=== PATIENT | female | born 1995 | race Hispanic/Latino ===

== ENCOUNTER 2018-06-26 22:05 | Emergency (ER) | payer OTHER ==
--- NOTE | 2018-06-26 23:51 | ER ---
Nurse's Notes [facility] Name: Yanelis Gallagher Age: 22 yrs Sex: Female : 1995 Arrival Date: 06/26/2018 Time: 22:09 Bed 13 Private MD: Gigi Webber Diagnosis: Dysmenorrhea, unspecified Presentation: 06/26 22:27 Presenting complaint: Patient states: LLQ and pelvic pain with spotting for three days, la1 LMP was 06/09/18. Transition of care: patient was not received from another setting of care. Onset of symptoms was June 26, 2018. Risk Assessment: Do you want to hurt yourself or someone else? Patient reports no desire to harm self or others. Initial Sepsis Screen: Does the patient meet any 2 criteria? No. Patient's initial sepsis screen is negative. Does the patient have a suspected source of infection? No. Patient's initial sepsis screen is negative. Care prior to arrival: None. 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 - Social history:: Smoking status: Patient/guardian denies using tobacco. - Ebola Screening: : No symptoms or risks identified at this time. - Family history:: not pertinent. Screenin:15 Abuse screen: Denies threats or abuse. Denies injuries from another. Nutritional aa1 screening: No deficits noted. Tuberculosis screening: No symptoms or risk factors identified. Fall Risk None identified. Assessment: 23:15 General: Appears in no apparent distress. comfortable, Behavior is calm, cooperative, aa1 appropriate for age. Pain: Complains of pain in left lower quadrant and right lower quadrant and suprapubic area Quality of pain is described as crampy, Pain began 1 day ago. Neuro: Level of Consciousness is awake, alert, obeys commands, Oriented to person, place, time, situation, Moves all extremities. Full function Gait is steady, Speech is normal. Cardiovascular: Denies chest pain, palpitations, shortness of breath. Respiratory: Airway is patent Respiratory effort is even, unlabored, Respiratory pattern is regular, symmetrical. GI: Reports lower abdominal pain, cramping, Patient currently denies constipation, diarrhea, nausea, vomiting. : Urine is blood tinged, Reports cramping, vaginal bleeding that is light flow, Denies burning with urination, discharge, urinary frequency, urgency. EENT: No signs and/or symptoms were reported regarding the EENT system. Derm: Skin is intact, is healthy with good turgor, Skin is pink, warm \T\ dry. Musculoskeletal: Circulation, motion, and sensation intact. Capillary refill < 3 seconds. 23:57 Reassessment: Patient appears in no apparent distress at this time. Patient is alert, aa1 oriented x 3, equal unlabored respirations, skin warm/dry/pink. Discussed d/c \T\ f/u instructions with pt. Denies questions or concerns at this time. Amb to lobby with steady gait. Vital Signs: 22:28 BP 159 / 97; Pulse 93; Resp 16; Temp 97.4; Pulse Ox 98% on R/A; Weight 69.85 kg; Height la1 5 ft. 4 in. (162.56 cm); Pain 8/10; 23:57 BP 134 / 82; Pulse 88; Resp 16; Pulse Ox 99% on R/A; Pain 4/10; aa1 22:28 Body Mass Index 26.43 (69.85 kg, 162.56 cm) la1 ED Course: 22:09 Patient arrived in ED. mr 22:09 Gigi Webber MD is Private Physician. mr 22:27 Triage completed. la1 22:29 Arm band placed on left wrist. la1 23:15 Hossein Burr MD is Attending Physician. honorio 23:15 Patient has correct armband on for positive identification. Placed in gown. Bed in low aa1 position. Call light in reach. Pulse ox on. NIBP on. Warm blanket given. 23:22 Sindy Rhodes RN is Primary Nurse. aa1 23:49 Gigi eWbber MD is Referral Physician. honorio 23:50 Russel Rasmussen MD is Referral Physician. [facility] 23:57 No provider procedures requiring assistance completed. Patient did not have IV access aa1 during this emergency room visit. Administered Medications: No medications were administered Outcome: 23:50 Discharge ordered by . [facility] 23:57 Discharged to home ambulatory. aa1 23:57 Condition: good 23:57 Discharge instructions given to patient, Instructed on discharge instructions, follow up and referral plans. medication usage, Demonstrated understanding of instructions, follow-up care, medications, Prescriptions given X 1. 23:59 Patient left the ED. aa1 Signatures: Sindy Rhodes, RN RN aa1 Hossein Burr MD MD cha Rivera, Mary mr Attema, Lee, RN RN la1
--- NOTE | 2018-06-26 23:51 | EDPHYS ---
Physician Documentation [facility] Name: Yanelis Gallagher Age: 22 yrs Sex: Female : 1995 Arrival Date: 06/26/2018 Time: 22:09 Bed 13 Private MD: Gigi Webber ED Physician Hossein Burr HPI: 06/26 23:42 This 22 yrs old Female presents to ER via Ambulatory with complaints of honorio Vaginal Bleeding, Abdominal Pain. 23:42 The patient presents with vaginal bleeding that is light. Onset: The symptoms/episode honorio began/occurred 3 day(s) ago. Modifying factors: The symptoms are alleviated by. Associated signs and symptoms: The patient has no apparent associated signs or symptoms. Severity of symptoms: At their worst the symptoms were mild, in the emergency department the symptoms are unchanged. The patient has not experienced similar symptoms in the past. 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 - Social history:: Smoking status: Patient/guardian denies using tobacco. - Ebola Screening: : No symptoms or risks identified at this time. - Family history:: not pertinent. ROS: 23:42 Constitutional: Negative for fever, chills, and weight loss, Eyes: Negative for injury, honorio pain, redness, and discharge, ENT: Negative for injury, pain, and discharge, Neck: Negative for injury, pain, and swelling, Cardiovascular: Negative for chest pain, palpitations, and edema, Respiratory: Negative for shortness of breath, cough, wheezing, and pleuritic chest pain, Back: Negative for injury and pain, MS/Extremity: Negative for injury and deformity, Skin: Negative for injury, rash, and discoloration, Neuro: Negative for headache, weakness, numbness, tingling, and seizure, Psych: Negative for depression, anxiety, suicide ideation, homicidal ideation, and hallucinations, Allergy/Immunology: Negative for hives, rash, and allergies, Endocrine: Negative for neck swelling, polydipsia, polyuria, polyphagia, and marked weight changes, Hematologic/Lymphatic: Negative for swollen nodes, abnormal bleeding, and unusual bruising. 23:42 Abdomen/GI: Positive for abdominal pain, of the suprapubic area, right lower quadrant and left lower quadrant. 23:42 : Positive for vaginal bleeding. Exam: 23:42 Constitutional: This is a well developed, well nourished patient who is awake, alert, honorio and in no acute distress. Head/Face: Normocephalic, atraumatic. Eyes: Pupils equal round and reactive to light, extra-ocular motions intact. Lids and lashes normal. Conjunctiva and sclera are non-icteric and not injected. Cornea within normal limits. Periorbital areas with no swelling, redness, or edema. ENT: Nares patent. No nasal discharge, no septal abnormalities noted. Tympanic membranes are normal and external auditory canals are clear. Oropharynx with no redness, swelling, or masses, exudates, or evidence of obstruction, uvula midline. Mucous membranes moist. Neck: Trachea midline, no thyromegaly or masses palpated, and no cervical lymphadenopathy. Supple, full range of motion without nuchal rigidity, or vertebral point tenderness. No Meningismus. Chest/axilla: Normal chest wall appearance and motion. Nontender with no deformity. No lesions are appreciated. Cardiovascular: Regular rate and rhythm with a normal S1 and S2. No gallops, murmurs, or rubs. Normal PMI, no JVD. No pulse deficits. Respiratory: Lungs have equal breath sounds bilaterally, clear to auscultation and percussion. No rales, rhonchi or wheezes noted. No increased work of breathing, no retractions or nasal flaring. Abdomen/GI: Soft, non-tender, with normal bowel sounds. No distension or tympany. No guarding or rebound. No evidence of tenderness throughout. Back: No spinal tenderness. No costovertebral tenderness. Full range of motion. Skin: Warm, dry with normal turgor. Normal color with no rashes, no lesions, and no evidence of cellulitis. MS/ Extremity: Pulses equal, no cyanosis. Neurovascular intact. Full, normal range of motion. Neuro: Awake and alert, GCS 15, oriented to person, place, time, and situation. Cranial nerves II-XII grossly intact. Motor strength 5/5 in all extremities. Sensory grossly intact. Cerebellar exam normal. Normal gait. Psych: Awake, alert, with orientation to person, place and time. Behavior, mood, and affect are within normal limits. Vital Signs: 22:28 BP 159 / 97; Pulse 93; Resp 16; Temp 97.4; Pulse Ox 98% on R/A; Weight 69.85 kg; Height la1 5 ft. 4 in. (162.56 cm); Pain 8/10; 23:57 BP 134 / 82; Pulse 88; Resp 16; Pulse Ox 99% on R/A; Pain 4/10; aa1 22:28 Body Mass Index 26.43 (69.85 kg, 162.56 cm) la1 MDM: 23:15 Patient medically screened. [facility] 23:42 Data reviewed: vital signs, nurses notes, lab test result(s), urinalysis. [facility] 06/26 23:15 Order name: Urine Dipstick-Ancillary (obtain specimen); Complete Time: 23:24 [facility] 06/26 23:15 Order name: Urine Test (obtain specimen); Complete Time: 23:24 [facility] Administered Medications: No medications were administered Disposition: 06/26/18 23:50 Discharged to Home. Impression: Dysmenorrhea, unspecified. - Condition is Stable. - Discharge Instructions: Dysmenorrhea, Dysmenorrhea, [id number]. - Prescriptions for Motrin IB 200 mg Oral Tablet - take 2 tablet by ORAL route every 6 hours As needed as needed with food; 30 tablet. - Medication Reconciliation Form, Thank You Letter, Antibiotic Education, Prescription Opioid Use form. - Follow up: Gigi Webber MD; When: 2 - 3 days; Reason: Recheck today's complaints, Continuance of care, Re-evaluation by your physician. Follow up: Russel Rasmussen MD; When: 2 - 3 days; Reason: Recheck today's complaints, Continuance of care, Re-evaluation by your physician. - Problem is new. - Symptoms have improved. Signatures: Sindy Rhodes RN RN aa1 Hossein Burr MD MD cha Attema, Lee RN RN la1 Corrections: (The following items were deleted from the chart) 23:59 23:50 06/26/2018 23:50 Discharged to Home. Impression: Dysmenorrhea, unspecified. aa1 Condition is Stable. Forms are Medication Reconciliation Form, Thank You Letter, Antibiotic Education, Prescription Opioid Use. Follow up: Gigi Webber; When: 2 - 3 days; Reason: Recheck today's complaints, Continuance of care, Re-evaluation by your physician. Follow up: Russel Rasmussen; When: 2 - 3 days; Reason: Recheck today's complaints, Continuance of care, Re-evaluation by your physician. Problem is new. Symptoms have improved. honorio
[2018-06-27 00:27] VITALS: TEMP 97.4
[2018-06-27 00:28] VITALS: BP 134/82; O2SAT 99
== END 2018-06-26 23:59 | disposition home or self-care (01) ==
LOC: ER 22:05
DX: N93.9 Abnormal uterine and vaginal bleeding, unspecified (principal); N94.6 Dysmenorrhea, unspecified; J45.909 Unspecified asthma, uncomplicated; Z88.5 Allergy status to narcotic agent
CPT/HCPCS: 99283

== ENCOUNTER 2022-03-02 09:10 | Emergency (ER) | payer OTHER ==
--- OUTSIDE RECORDS SUMMARY | 2022-03-02 09:14 | XMS REPORT | Continuity of Care Document ---
:1995 Author Organization [facility] t Address [address] [place] [address] Care Team Providers Name Role Phone G_Papred Attending Clinician Unavailable White_M Attending Clinician Unavailable AFSANEH_MYRIAM Attending Clinician Unavailable Rutledge_L Attending Clinician Unavailable NÉO DAVENPORT Attending Clinician Unavailable G_Pappas Admitting Clinician Unavailable White_M Admitting Clinician Unavailable AFSANEH_MYRIAM Admitting Clinician Unavailable Rutledge_L Admitting Clinician Unavailable Payers Payer Name Policy Type Policy Number Effective Date [facility]piration Date [facility] [id number] 2020 COMMUNITY PLAN - 00:00:00 [facility] (MEDICAID HMO) Problems Condition Condition Condition Status Onset Resolution Last Treating Co mments Source Name Details Category Date Date Treatment Clinician Date Primary Primary Problem Active [place] dysmenorrh Dysmenorrh 5-20 da ea ea 00:00: Medical 00 Group Menorrhagi Menorrhagi Problem Active [facility] a a 5-20 da 00:00: Medical 00 Group Initial Initial Problem Active [place] prescripti Prescripti 5-20 da on of oral on of Oral 00:00: Me dical contracept Contracept 00 Gr oup ion ion Removal of Removal of Problem Active [facility] subcutaneo Subcutaneo 5-20 da [facility] 00:00: Medical contracept Contracept 00 Gr oup ehsan ehsan Gastritis Gastritis Problem Active 2020-03 [facility] 2-28 da 00:00: Medical 00 Group Allergies, Adverse Reactions, Alerts Allergy Allergy Status Severity Reaction(s) Onset Inactive Treating Comm ents Source Name Type Date Date Clinician TRAMADOL [facility] ACETAMIN Allergy Active [facility] DEINE 00:[facility] Medical 00 Center Tramadol Propensi Active [facility] adverse 00:00: Medical reaction 00 Opp s Acetamin Propensi Active [address] [facility]hen-Co ty [facility] deine adverse 00:00: Medical reaction 00 Opp s Social History Social Habit Start Date Stop Date Quantity Comments Source Tobacco use and 2019-04-08 2019-04-[address] [facility] exposure 00:00:00 00:00:00 [facility] Alcohol intake 2019-04-08 2019-04-08 [facility]00 [facility] alcohol [facility] (finding) Sex Assigned At [address] [address] [facility] 00:00[facility]00 00[facility]00 [facility] Center Smoking Status Start Date Stop Date Source Never sm[facility] Medications Ordered Filled Start Stop Current Ordering Indication Dosage Frequency Signature Comments Components Source Medication Medication Date Date Medication? Clinician (SIG) Name Name dexlansopra 2019- Yes 60mg QD Take [address] zole 60 mg 2-08 by mouth [facility] capsule 07:04: daily. Medical [facility] Center Bifidobacte 2019-0 Yes Take by [facility] rium 2-08 mouth. [facility] infantis 07:04: Medical (ALIGN 59 Center ORAL) simethicone 2020-0 Yes 125mg Take [address] (MYLICON) 2-08 mg by [facility] 125 MG 07:04: mouth Medical chewable 59 every 6 Center tablet (six) hours as needed for Flatulence . Diflucan Diflucan No 1 Q1D Diflucan [facility] 100 mg 100 mg 100 mg da tablet Take tablet Take tablet Medical 1 tablet 1 tablet Take 1 Group every day every day tablet by oral by oral every day route for 3 route for 3 by oral days. days. route for 3 days. nystatin nystatin No nystatin [facility] 100,000 100,000 100,000 da unit/gram unit/gram unit/gram Medical topical topical topical Group cream APPLY cream APPLY cream TO THE TO THE APPLY TO AFFECTED AFFECTED THE AREA(S) BY AREA(S) BY AFFECTED TOPICAL TOPICAL AREA(S) BY ROUTE 2-3 ROUTE 2-3 TOPICAL TIMES PER TIMES PER ROUTE 2-3 DAY DAY TIMES PER DAY Vital Signs Vital Name Observation Time Observation Value Comments Source BP Diastolic 2021-10-14 00:00:00 87 mm[Hg] [facility] Height 2021-10-14 00:00:00 62 [in_i] [facility] BMI (Body Mass 2021-10-14 00:00:00 30.4 kg/m2 [facility] Medical Index) Group BP Systolic 2021-10-14 00:00:00 125 mm[Hg] [facility] Body Weight 2021-10-14 00:00:00 166 [lb_av] [facility] BP Diastolic 2021-07-19 00:00:00 89 mm[Hg] [facility] Height 2021-07-19 00:00:00 62 [in_i] [facility] BMI (Body Mass 2021-07-19 00:00:00 30.7 kg/m2 [facility] Medical Index) Group BP Systolic 2021-07-19 00:00:00 136 mm[Hg] [facility] Body Weight 2021-07-19 00:00:00 168 [lb_av] [facility] BP Diastolic 2021-02-26 00:00:00 71 mm[Hg] [facility] BP Systolic 2021-02-26 00:00:00 123 mm[Hg] [facility] Body Weight 2021-02-26 00:00:00 158.5 [lb_av] [facility] Procedures Procedure Date / Time Performed Performing Clinician [facility] Dilation and Curettage 2020-01-31 00:00:00 [facility] Laparoscopy 2020-01-15 00:00:00 [facility] Endoscopy 2019-01-30 00:00:00 [facility] Plan of Care Planned Activity Planned Date Details Comments Source Future Scheduled 2021-10-[address] [facility] Test 00:00:00 (#1) [code = [facility] INFLUENZA VACCINE (#1)] Diagnostic Test 2021-10-14 urinalysis, dipstick Nieves jayjay Medical Pending 00:00:00 [code = urinalysis, Group dipstick] Diagnostic Test 2021-10-14 [facility]:00 [code = [place], Group vaginal] Future Scheduled 2021-03-[address] [facility] Test 00:00:00 (12+) [code = [facility] Center DEPRESSION SCREENING (12+)] Future Scheduled 2020-04-[address] [facility] Test 00:00[facility] Scre[facility] (12+) [code = Tobacco Cessation Counseling and Screening (12+)] Future Scheduled 2015-10-[address] [facility] Test 00:00:00 malignant neoplasm Medical C enter of cervix (procedure) [code = 995221424] Future Scheduled 2013 DTAP/TDAP/TD [facility] Test 00:00:00 VACCINES (1 - Tdap) Medical Center [code = DTAP/TDAP/TD VACCINES (1 - Tdap)] Future Scheduled [address] [facility] Test 00:00:00 SCREENING [code [facility] HE[facility] C SCREENING] Future Scheduled 1995-04-25 COVID-[address] [facility] Test 00:00:00 (#1) [code = [facility] COVID-19 VACCINE (#1)] Encounters Start End Encounter Admission Attending Care Care Encounter Source Date/Time Date/Time Type Type Clinicians Facility Department ID 2021-10-14 2021-10-14 [place] [id number] [facility] 00:00:00 00:00:00 0815 Medical Group 2021-10-14 2021-10-14 Issac [place] - [id number] [facility] 00:00:00 00:00:00 Discovery prashant Ornelas MD: [address] [place] [phone] , Ph. [phone] 2021-10-08 2021-10-08 [place] [id number] [facility] 00:00:00 00:00:00 0809 Medical Group 2021-09-12 2021-09-12 Outpatient LISTER_LUISA VILLATORO [facility] 739 [place] 12:41:00 12:41:00 SSA 0714 [facility] Program 2021-07-19 2021-07-19 [place] [id number] [place] 08:37:00 08:37:00 0523 Medical Group 2021-07-19 2021-07-19 Outpatient White_M MMG MMG [id number] [place] 03:43:00 03:43:00 0520 Medical Group 2021-07-19 2021-07-19 Issac GOOD [place] - [id number] [facility] 00:00:00 00:00:00 Discovery prashant Ornelas MD: [address] [place] [phone] , Ph. [phone] 2021-07-18 2021-07-18 Outpatient White_M MMG MMG [id number] [place] 03:49:00 03:49:00 0519 Medical Group 2021-02-26 2021-02-26 Outpatient White_M MMG MMG [id number] [place] 10:57:00 10:57:00 1228 Medical Group 2021-02-26 2021-02-26 Outpatient White_M MMG MMG [id number] [place] 10:57:00 10:57:00 1230 da Medical Group 2021-02-26 2021-02-26 Outpatient LOREN VILLATORO 739 [place] 02:47:00 02:47:00 SSA 1228 da [facility] 2021-02-26 2021-02-26 Diana [facility] [place] - [id number] M [facility] 00:00:00 00:00:00 Discovery prashant Wallace [facility]-: [facility] Medical [address] [place] [address] OBGYN [address], [place] [address] , Ph. [phone] 2021-02-25 2021-02-25 Outpatient Rutledge_L [facility] [id number] [place] 09:08:00 09:08:00 1227 Medical Group 2021-02-01 2021-02-01 Outpatient Rutledge_L [facility] [id number] [place] 11:26:00 11:26:00 1203 Medical Group Results Test Description Test Time Test Comments Results Result Comments Source Microscopic observation [Identifier] in Vaginal fluid by Wet 2021-10-14 10:11:04 preparation Test Item Value Reference Range Interpretation Comme nts Clue Cells (test code = Clue Cells) negative WBCs (test code = WBCs) positive Trichomonads (test code = Trichomonads) negative Epithelial cells (test code = Epithelial cells) normal RBCs (test code = RBCs) negative [facility] macro (dipstick) panel - [id number] 09:26:00 Test Item Value Reference Range Interpretation Comments Leukocytes (test code = Leukocytes) Small Nitrite (test code = Nitrite) negative Urobilinogen (test code = .2 Urobilinogen) Protein (test code = Protein) Negative pH (test code = pH) 6.0 Blood (test code = Blood) Small Specific Lockwood (test code = 1.030 Specific [place]) Ketone (test code = Ketone) Negative Bilirubin (test code = Bilirubin) Negative Glucose (test code = Glucose) Negative Appearance (test code = Appearance) Clear Color (test code = Color) Yellow [facility] - Serum or Plasma 2021-02-26 10:02:00 Test Item Value Reference Range Interpretation Comments Glucose [Mass/volume] in Serum or 99 mg/dL 74-106 Plasma (test code = 2345-7) Urea nitrogen [Mass/volume] in 11 mg/dL 6-20 Serum or Plasma (test code = 3094-0) osmolality calculated,serum (test 275 mOsm/kg 280-300 L code = osmolality calculated,serum) creatinine (test code = 0.7 mg/dL 0.50-0.90 creatinine) glomerular filtration rate (test >60.00 code = glomerular filtration rate) Urea nitrogen/Creatinine [Mass 15.7 12-20 Ratio] in Serum or Plasma (test code = 3097-3) sodium level (test code = sodium 138 mmol/L 135-145 level) potassium level (test code = 4.0 mmol/L 3.5-5.2 potassium level) chloride level (test code = 105 mmol/L 98-108 chloride level) CO2 (test code = CO2) 24 mmol/L 21-32 anion gap (test code = anion gap) 13.0 mEq/L 12-20 calcium level (test code = 9.1 mg/dL 8.6-10.0 calcium level) total protein (test code = total 7.3 g/dL 6.6-8.7 protein) albumin (test code = albumin) 4.2 g/dL 3.5-5.2 globulin (test code = globulin) 3.1 gm/dL A/G ratio (test code = A/G ratio) 1.4 >1.0 bilirubin,total (test code = 0.4 mg/dL 0.0-1.2 bilirubin,total) AST/SGOT (test code = AST/SGOT) 16 U/L 15-32 Alanine aminotransferase 13 U/L 0-33 [Enzymatic activity/volume] in Serum or Plasma (test code = 1742-6) Alkaline phosphatase [Enzymatic 79 U/L 35-105 activity/volume] in Serum or Plasma (test code = 6768-6) [facility] Mississippi[facility] 1995 panel - Serum or [id number] 10:02:00 Test Item Value Reference Range Interpretation Comments cholesterol level (test code = 137 mg/dL 150-200 L cholesterol level) triglycerides level (test code = 76 mg/dL <150 triglycerides level) HDL cholesterol (test code = HDL 37 mg/dL >65 L cholesterol) LDL cholesterol direct (test code = 95 mg/dL <100 LDL cholesterol direct) cholesterol risk ratio (test code = 3.702 cholesterol risk ratio) [facility] - cancer history assessment [id number] 08:26:00 Test Item Value Reference Range Interpretation Comments [facility] - cancer history meets criteria A assessment result (test code = [facility] - cancer history assessment result) [facility] Differential panel - [id number] 00:00:00 Test Item Value Reference Range Interpretation Comments white blood count (test code = 7.2 K/uL 4.0-11.5 white blood count) red blood count (test code = red 5.17 M/uL 3.80-5.20 blood count) hemoglobin (test code = 15.0 g/dL 10.5-15.7 hemoglobin) hematocrit (test code = 44.9 % 34.0-50.0 hematocrit) MCV [Entitic volume] (test code = 86.8 fL 86-100 54096-2) mean corpuscular hemoglobin (test 29.0 pg 26.2-33.4 code = mean corpuscular hemoglobin) mean corpuscular HGB conc (test 33.4 g/dL 30-34 code = mean corpuscular HGB conc) red cell distribution width (test 13.0 % 12.0-15.5 code = red cell distribution width) platelet count (test code = 254 K/uL 165-450 platelet count) mean platelet volume (test code = 10.6 fL 9.4-12.6 mean platelet volume) Segmented neutrophils/100 61.9 % 44.4-80.1 leukocytes in Blood (test code = 28060-2) Immature granulocytes [#/volume] 0.0 K/uL 0.0-0.03 in Blood (test code = 92762-7) lymphocyte% (test code = 26.4 % 10.0-50.0 lymphocyte%) mono % (test code = mono %) 9.0 % 3.6-12.0 eos % (test code = eos %) 1.9 % 0.0-5.4 Basophils/100 leukocytes in 0.4 % 0.1-1.2 Unspecified specimen (test code = 33872-1) Band form neutrophils [#/volume] 4.46 K/uL 1.56-6.13 in Blood (test code = 74315-2) Lymphocytes [#/volume] in 1.9 K/uL 1.18-3.74 Unspecified specimen by Automated count (test code = 82457-1) mono # (test code = mono #) 0.65 K/uL 0.24-0.86 eos # (test code = eos #) 0.14 K/uL 0.04-0.36 basophil # (test code = basophil 0.03 K/uL 0.01-0.08 #) NRBC% (test code = NRBC%) 0 /100 WBC 0-0.2 NRBC# (test code = NRBC#) 0 K/uL [facility] panel, method unspecified - [id number] 00:00:00NeutrophilsBandLymphocyteAtypical LymphMonocyteEosinophilBasophilAbs Neutrophil Count (Man)Abs LymphCount (Man)Abs Monocyte Count (Man)Abs Eosinophil Count (Man)Abs Basophil Count (Man)Platelet EstimatePlatelet MorphologyAnisocytosisMicrocytosisMataUMMC GrenadaHemoglobin A1c/Hemoglobin.total in [id number] 00:00:00 Test Item Value Reference Range Interpretation Comments Hemoglobin A1c [Mass/volume] in Blood 5.4 % 4.0-6.0 (test code = 54127-9) [facility] Mississippi[facility]yrotropin [Units/volume] in Serum or [id number] 00:00:00 Test Item Value Reference Range Interpretation Comments Thyrotropin [Units/volume] in 1.36 uIU/mL 0.36-3.74 Serum or Plasma (test code = 3016-3) [facility] Mississippi[facility]yroxine (T4) free [Mass/volume] in Serum or Plasma 2021-02-26 00:00:00 Test Item Value Reference Range Interpretation Comments free T4 (test code = free T4) 1.12 NG/dL 0.93-1.7 [facility] MississippiCT, [id number] 04:05:00FINAL REPORT CT, ABDOMEN \T\ PELVIS, WITH IV CONTRAST CLINICAL HISTORY: RLQ abdo dipak pain, appendicitis suspected (Age > 14y) TECHNIQUE: Multiple axial images of the abdomen and pelvis were performed after the uncomplicated administration of IV contrast. Coronal and sagittal reformats obtained. Oral contrast was not administered. This exam was performed according to our [facility] dose-optimization program, which includes automated exposure control, adjustment of the mA and/or kV according to patient size and/or use of the iterative reconstruction technique. COMPARISON:None. FINDINGS:LOWER CHEST:No acute process. LIVER: No acute findings.BILIARY SYSTEM: No abnormal ductal dilatation. Status post cholecystectomy.PANCREAS: No acute findings. SPLEEN: No acute findings.ADRENAL GLANDS: Unremarkable.KIDNEYS URETERS: No acute findings. GASTROINTESTINAL/MESENTERY: No bowel obstruction or abnormal wall thickening. Normal appendix. URINARY BLADDER: No acute findings.REPRODUCTIVE ORGANS: No acute findings. PERITONEUM/RETROPERITONEUM: No free air or free fluid VESSELS: No acute findings. LYMPH NODES: No abdominal or pelvic lymphadenopathy.SOFT TISSUES: No acute findings.BONES: No suspicious osseous lesion. Other: None IMPRESSION:No acute abnormality. Normal appendix. Signed: Mario Lucas MDReport Verified Date/Time: 04/09/2019 04:05:55 PREGNANCY SCREEN, [id number] 03:27:00 Test Item Value Reference Range Interpretation Comments TEST URINE (BEAKER) (test Negative code = 583) URINALYSIS W/ REFLEX URINE [id number] 03:25:00 Test Item Value Reference Range Interpretation Comments COLOR (BEAKER) (test code = 470) Yellow CLARITY (BEAKER) (test code = 469) Hazy SPECIFIC GRAVITY UA (BEAKER) (test 1.025 1.001-1.035 code = 468) PH UA (BEAKER) (test code = 467) 6.0 5.0-8.0 PROTEIN UA (BEAKER) (test code = 20 mg/dL Negative A 464) GLUCOSE UA (BEAKER) (test code = Negative Negative 365) KETONES UA (BEAKER) (test code = Negative Negative 371) BILIRUBIN UA (BEAKER) (test code = Negative Negative 462) BLOOD UA (BEAKER) (test code = 461) Negative Negative NITRITE UA (BEAKER) (test code = Negative Negative 465) LEUKOCYTE ESTERASE UA (BEAKER) Large Negative A (test code = 466) UROBILINOGEN UA (BEAKER) (test code 0.2 mg/dL 0.2-1.0 = 463) RBC UA (BEAKER) (test code = 519) 1 /HPF WBC UA (BEAKER) (test code = 520) 5 /HPF BACTERIA (BEAKER) (test code = 517) Few MUCUS (BEAKER) (test code = 1574) Many SQUAMOUS EPITHELIAL (BEAKER) (test 9 /HPF code = 516) SOURCE(BEAKER) (test code = 2795) Packaging Inspector ID - [auto]Packaging Inspector ID - techBASIC METABOLIC [id number] 02:53:00 Test Item Value Reference Range Interpretation Comments SODIUM (BEAKER) (test 138 meq/L 136-145 code = 381) POTASSIUM (BEAKER) 3.6 meq/L 3.5-5.1 (test code = 379) CHLORIDE (BEAKER) 106 meq/L 98-107 (test code = 382) CO2 (BEAKER) (test 24 meq/L 22-29 code = 355) BLOOD UREA NITROGEN 7 mg/dL 7-21 (BEAKER) (test code = 354) CREATININE (BEAKER) 0.77 mg/dL 0.57-1.25 (test code = 358) GLUCOSE RANDOM 95 mg/dL 70-105 (BEAKER) (test code = 652) CALCIUM (BEAKER) 9.6 mg/dL 8.4-10.2 (test code = 697) EGFR (BEAKER) (test INSUFFIC IENT CLINICAL code = 1092) DATA TO CALCULA TE ESTIMATED GFR. Packaging Inspector ID - PIMIA [id number] 02:12:00 Test Item Value Reference Range Interpretation Comments PHOSPHORUS (BEAKER) (test code = 3.3 mg/dL 2.3-4.7 604) Packaging Inspector ID - PIMIA [id number] 02:12:00 Test Item Value Reference Range Interpretation Comments MAGNESIUM (BEAKER) (test code = 2.1 mg/dL 1.6-2.6 627) Packaging Inspector ID - ZARIA LHEPATIC FUNCTION [id number] 02:12:00 Test Item Value Reference Range Interpretation Comments TOTAL PROTEIN (BEAKER) (test code = 8.3 gm/dL 6.0-8.3 770) ALBUMIN (BEAKER) (test code = 1145) 4.6 g/dL 3.5-5.0 BILIRUBIN TOTAL (BEAKER) (test code 0.6 mg/dL 0.2-1.2 = 377) BILIRUBIN DIRECT (BEAKER) (test 0.3 mg/dL 0.1-0.5 code = 706) ALKALINE PHOSPHATASE (BEAKER) (test 84 U/L 40-150 code = 346) AST (SGOT) (BEAKER) (test code = 16 U/L 5-34 353) ALT (SGPT) (BEAKER) (test code = 14 U/L 6-55 347) Packaging Inspector ID - ZARIA [id number] 02:12:00 Test Item Value Reference Range Interpretation Comments LIPASE (BEAKER) (test code = 749) 39 U/L 8-78 Packaging Inspector ID - ZARIA LCBC W/PLT COUNT & AUTO [id number] 01:52:00 Test Item Value Reference Range Interpretation Comments WHITE BLOOD CELL COUNT (BEAKER) 12.1 K/ L 3.5-10.5 H (test code = 775) RED BLOOD CELL COUNT (BEAKER) 5.16 M/ L 3.93-5.22 (test code = 761) HEMOGLOBIN (BEAKER) (test code = 15.1 GM/DL 11.2-15.7 410) HEMATOCRIT (BEAKER) (test code = 45.2 % 34.1-44.9 H 411) MEAN CORPUSCULAR VOLUME (BEAKER) 87.6 fL 79.4-94.8 (test code = 753) MEAN CORPUSCULAR HEMOGLOBIN 29.3 pg 25.6-32.2 (BEAKER) (test code = 751) MEAN CORPUSCULAR HEMOGLOBIN CONC 33.4 GM/DL 32.2-35.5 (BEAKER) (test code = 752) RED CELL DISTRIBUTION WIDTH 13.0 % 11.7-14.4 (BEAKER) (test code = 412) PLATELET COUNT (BEAKER) (test 255 K/CU MM 150-450 code = 756) MEAN PLATELET VOLUME (BEAKER) 10.7 fL 9.4-12.3 (test code = 754) NUCLEATED RED BLOOD CELLS 0 /100 WBC 0-0 (BEAKER) (test code = 413) NEUTROPHILS RELATIVE PERCENT 65 % (BEAKER) (test code = 429) LYMPHOCYTES RELATIVE PERCENT 24 % (BEAKER) (test code = 430) MONOCYTES RELATIVE PERCENT 9 % (BEAKER) (test code = 431) EOSINOPHILS RELATIVE PERCENT 1 % (BEAKER) (test code = 432) BASOPHILS RELATIVE PERCENT 0 % (BEAKER) (test code = 437) NEUTROPHILS ABSOLUTE COUNT 7.83 K/ L 1.56-6.13 H (BEAKER) (test code = 670) LYMPHOCYTES ABSOLUTE COUNT 2.88 K/ L 1.18-3.74 (BEAKER) (test code = 414) MONOCYTES ABSOLUTE COUNT (BEAKER) 1.11 K/ L 0.24-0.36 H (test code = 415) EOSINOPHILS ABSOLUTE COUNT 0.14 K/ L 0.04-0.36 (BEAKER) (test code = 416) BASOPHILS ABSOLUTE COUNT (BEAKER) 0.05 K/ L 0.01-0.08 (test code = 417) IMMATURE GRANULOCYTES-RELATIVE 1 % 0-1 PERCENT (BEAKER) (test code = 9351)
[2022-03-02] MEDS ORDERED: ONDANSETRON 4 MG/2 ML VIAL ONE (10:19)
[2022-03-02] MEDS ORDERED: MAGNES/ALUMIN/SIMET 30ML UCUP ONE (10:19)
[2022-03-02] MEDS ORDERED: NA CHLORIDE 0.9% 1,000 ML ONE (10:19)
[2022-03-02] MEDS ORDERED: LIDOCAINE VISCOUS 2% SOLN 15 ML UDC ONE (10:20)
[2022-03-02] MEDS ORDERED: PANTOPRAZOLE 40 MG INJ ONE (10:25)
[2022-03-02 10:41] LABS: Absolute Lymphocytes (CBC) 2.1 K/uL (0.7-4.9); Hematocrit 46.3 % (36.0-45.0); Lymphocytes % 25.6 % (15.3-44.8); MCV 88.2 fL (80-100); MPV 8.5 fL (7.6-11.3); RBC Red Blood Cell Count 5.25 M/uL (3.86-4.86)
[2022-03-02 10:41] LABS: Urine Blood 1+ (Negative); Urine Glucose Negative (Negative); Urine Protein Negative (Negative); Urine Specific Gravity 1.025 (1.005-1.030); Urine pH 5.5 (5.0-7.0)
[2022-03-02 10:57] LABS: Albumin 3.9 g/dL (3.4-5.0); Bilirubin Total 0.5 mg/dL (0.2-1.0); Potassium 3.6 mmol/L (3.5-5.1)
[2022-03-02 11:00] LABS: Urine Specific Gravity/Preg 1.025 (1.005-1.030)
--- NOTE | 2022-03-02 11:44 | RAD REPORT ---
EXAM DESCRIPTION: CT - Abdomen Pelvis W Contrast - 03/02/2022 11:19 am CLINICAL HISTORY: upper abd pain, hx of gastritis/pancreatitis COMPARISON: Abdomen Pelvis W Contrast dated 11/09/2016; CT ABD PELVIS W CONTRAST dated 03/15/2014 TECHNIQUE: Biphasic, helical CT imaging of the abdomen and pelvis was performed following 100 ml non -ionic IV contrast. Oral contrast: No. All CT scans are performed using dose optimization technique as appropriate and may include automated exposure control or mA/KV adjustment according to patient size. FINDINGS: No suspicious findings in the lung bases. The liver, spleen, and pancreas show no suspicious findings. Gallbladder is absent. No biliary tree d ilatation. Symmetric renal function is seen with no hydronephrosis or suspicious renal mass. No pyelonephritis o r acute parenchymal process. No bladder abnormalities. No adrenal abnormalities. Uterus and ovaries s how no suspicious findings. A very minimal hiatal hernia is present. No gastric wall thickening or edema. No acute large or small bowel finding. The appendix is normal. Mild enteritis can be occult on CT imaging. No free air, free fluid or inflammatory stranding. No hernia, mass or bulky lymphadenopathy. No ab normal mesenteric adenopathy pattern. No suspicious bony findings. IMPRESSION: Contrast enhanced CT abdomen and pelvis showing no significant or suspicious finding.
--- NOTE | 2022-03-02 12:31 | ER ---
Nurse's Notes [facility] Name: Yanelis Gallagher Age: 26 yrs Sex: Female : 1995 Arrival Date: 03/02/2022 Time: 09:13 Bed 2 Private MD: Diagnosis: Acute gastritis without bleeding;Abdominal pain, unspecified;Hiatal hernia Presentation: 03/02 09:16 Chief complaint: Patient states: I have chronic gastritis, for the last 3 days my kr3 stomach has been hurting and I have taken all my current medications with no relief. The pain is across the middle of my stomach and travels around to the lower left side of my back. Coronavirus screen: Vaccine status: Patient reports receiving the 2nd dose of the covid vaccine. Client denies travel out of the [place] in the last 14 days. Ebola Screen: Patient denies travel to an Ebola-affected area in the 21 days before illness onset. Initial Sepsis Screen: Does the patient meet any 2 criteria? No. Patient's initial sepsis screen is negative. Does the patient have a suspected source of infection? No. Patient's initial sepsis screen is negative. Risk Assessment: Do you want to hurt yourself or someone else? Patient reports no desire to harm self or others. Onset of symptoms was February 27, 2022. 09:16 Method Of Arrival: Ambulatory kr3 09:16 Acuity: THOMAS 3 kr3 Triage Assessment: 09:20 General: Appears in no apparent distress. uncomfortable, Behavior is calm, cooperative, kr3 appropriate for age. Pain: Complains of pain in abdomen. Historical: - Allergies: 09:19 tramadol; kr3 09:19 Tylenol-Codeine #3; kr3 - PMHx: 09:19 Asthma; kr3 - PSHx: 09:19 Cholecystectomy; kr3 - Immunization history:: Adult Immunizations not up to date. - Social history:: Smoking status: Patient denies any tobacco usage or history of. - Family history:: not pertinent. - Hospitalizations: : No recent hospitalization is reported. Screenin:15 [facility] ED Fall Risk Assessment (Adult) History of falling in the last 3 months, jl7 including since admission No falls in past 3 months (0 pts) Confusion or Disorientation No (0 pts) Intoxicated or Sedated No (0 pts) Impaired Gait No (0 pts) Mobility Assist Device Used No (0 pt) Altered Elimination No (0 pt) Score/Fall Risk Level 0 - 2 = Low Risk Oriented to surroundings. Abuse screen: Denies threats or abuse. Denies injuries from another. Nutritional screening: No deficits noted. Tuberculosis screening: No symptoms or risk factors identified. Assessment: 10:57 Reassessment: Patient appears in no apparent distress at this time. Patient and/or hb family updated on plan of care and expected duration. Pain level reassessed. Patient is alert/active/playful, equal unlabored respirations, skin warm/dry/pink. 12:11 Reassessment: Patient appears in no apparent distress at this time. No changes from hb previously documented assessment. Patient and/or family updated on plan of care and expected duration. Pain level reassessed. 12:15 Reassessment: Patient appears in no apparent distress at this time. Patient and/or jl7 family updated on plan of care and expected duration. Pain level reassessed. Patient is alert, oriented x 3, equal unlabored respirations, skin warm/dry/pink. pain rated 4/10 at this time. Vital Signs: 09:16 BP 124 / 92; Pulse 76; Resp 18; Temp 98.4; Pulse Ox 100% on R/A; Weight 83.46 kg; kr3 Height 5 ft. 3 in. (160.02 cm); Pain 8/10; 10:34 BP 111 / 70; Pulse 74; Resp 16; Pulse Ox 99% on R/A; hb 12:15 BP 106 / 64; Pulse 68; Resp 15; Temp 97.9; Pulse Ox 99% ; Pain 4/10; jl7 09:16 Body Mass Index 32.59 (83.46 kg, 160.02 cm) kr3 ED Course: 09:13 Patient arrived in ED. rg4 09:16 Erik Erwin MD is Attending Physician. rn 09:19 Triage completed. kr3 10:16 Nakia Medel, BRIE is Primary Nurse. hb 10:25 Initial lab(s) drawn, by ED staff, sent to lab. Inserted saline lock: 20 gauge in right jl7 antecubital area, using aseptic technique. Blood collected. 10:28 CBC with Diff Sent. mm9 10:28 CMP Sent. mm9 10:28 Lipase Sent. mm9 10:29 Patient has correct armband on for positive identification. Placed in gown. Bed in low mm9 position. Call light in reach. Side rails up X 1. Warm blanket given. Pulse ox on. NIBP on. 11:00 Arm band placed on right wrist. jl7 11:21 CT Abd/Pelvis - IV Contrast Only In Process Unspecified. EDMS 13:33 No provider procedures requiring assistance completed. IV discontinued, intact, jl7 bleeding controlled, No redness/swelling at site. Pressure dressing applied. Administered Medications: 10:32 Drug: NS 0.9% 1000 ml Route: IV; Rate: 1 bolus; Site: right antecubital; hb 12:00 Follow up: Response: No adverse reaction; IV Status: Completed infusion; IV Intake: jl7 1000ml 10:32 Drug: GI Cocktail without - (Maalox Suspension 30 ml, Lidocaine Liquid 2 % 15 hb ml) Route: PO; 13:32 Follow up: Response: No adverse reaction jl7 10:32 Drug: ProTONIX (pantoprazole) 40 mg Route: IVP; Site: right antecubital; hb 13:32 Follow up: Response: No adverse reaction jl7 10:33 Drug: Zofran (Ondansetron) 4 mg Route: IVP; Site: right antecubital; hb 13:32 Follow up: Response: No adverse reaction jl7 Medication: 12:15 VIS not applicable for this client. jl7 Intake: 12:00 IV: 1000ml; Total: 1000ml. jl7 Outcome: 12:31 Discharge ordered by . rn 13:34 Discharged to home ambulatory. jl7 13:34 Condition: stable 13:34 Discharge instructions given to patient, Instructed on discharge instructions, follow up and referral plans. medication usage, Demonstrated understanding of instructions, follow-up care, medications, Prescriptions given X 1. 13:34 Patient left the ED. jl7 Signatures: Dispatcher [employer] EDMS Erik Erwin MD MD rn Baxter, Heather, RN RN hb Garcia, Rubi rg4 Tania Webber RN RN jl7 Savana Jones RN RN kr3 Daly Saunders mm9 Corrections: (The following items were deleted from the chart) 13:32 13:32 Response: No adverse reaction; IV Status: Completed infusion; IV Intake: 1000ml jl7 jl7
--- NOTE | 2022-03-02 12:31 | EDPHYS ---
Physician Documentation [facility] Name: Yanelis Gallagher Age: 26 yrs Sex: Female : 1995 Arrival Date: 03/02/2022 Time: 09:13 Bed 2 Private MD: ED Physician Erik Erwin HPI: 03/02 09:49 This 26 yrs old Female presents to ER via Ambulatory with complaints of rn Abdominal Pain. 09:49 The patient presents with abdominal pain in the epigastric area. Onset: The rn symptoms/episode began/occurred 2 day(s) ago. The symptoms radiate to Associated signs and symptoms: Pertinent positives: nausea, Pertinent negatives: blood in stools, chest pain, constipation, diarrhea, dysuria, fever, shortness of breath. The symptoms are described as burning, intermittent. Modifying factors: The symptoms are alleviated by nothing, the symptoms are aggravated by food, touching the area. Severity of pain: At its worst the pain was moderate in the emergency department the pain is unchanged. The patient has experienced similar episodes in the past. The patient has not recently seen a physician. Pt reports upper abd pain for 2-3 days, similar symptoms in past with gastritis and pancreatitis, no vomiting, no blood in stool. No fever or chest pain. Pain radiates to back. NO diarrhea. NO cough/congestion. . Historical: - Allergies: 09:19 tramadol; kr3 09:19 Tylenol-Codeine #3; kr3 - PMHx: 09:19 Asthma; kr3 - PSHx: 09:19 Cholecystectomy; kr3 - Immunization history:: Adult Immunizations not up to date. - Social history:: Smoking status: Patient denies any tobacco usage or history of. - Family history:: not pertinent. - Hospitalizations: : No recent hospitalization is reported. ROS: 09:49 Constitutional: Negative for fever, chills, and weight loss, Eyes: Negative for injury, rn pain, redness, and discharge, Neck: Negative for injury, pain, and swelling, Cardiovascular: Negative for chest pain, palpitations, and edema, Respiratory: Negative for shortness of breath, cough, wheezing, and pleuritic chest pain, Abdomen/GI: + epigastric abd pain, + nausea Back: Negative for injury MS/Extremity: Negative for injury and deformity, Skin: Negative for injury, rash, and discoloration, Neuro: Negative for headache, weakness, numbness, tingling, and seizure. Exam: 09:49 Constitutional: This is a well developed, well nourished patient who is awake, alert, rn and in no acute distress. Head/Face: Normocephalic, atraumatic. Cardiovascular: Regular rate and rhythm. No pulse deficits. Respiratory: No increased work of breathing, no retractions or nasal flaring. Abdomen/GI: soft, + epigastric abd tenderness, no rebound, no masses Skin: Warm, dry MS/ Extremity: Pulses equal, no cyanosis. Neuro: Awake and alert, GCS 15 Vital Signs: 09:16 BP 124 / 92; Pulse 76; Resp 18; Temp 98.4; Pulse Ox 100% on R/A; Weight 83.46 kg; kr3 Height 5 ft. 3 in. (160.02 cm); Pain 8/10; 10:34 BP 111 / 70; Pulse 74; Resp 16; Pulse Ox 99% on R/A; hb 12:15 BP 106 / 64; Pulse 68; Resp 15; Temp 97.9; Pulse Ox 99% ; Pain 4/10; jl7 09:16 Body Mass Index 32.59 (83.46 kg, 160.02 cm) kr3 MDM: 09:16 Patient medically screened. rn 09:49 Differential diagnosis: bowel obstruction, gastritis, gastroesophageal reflux disease, rn non-specific abd pain, pancreatitis, Peptic Ulcer Disease, Perf. Duodenal Ulcer, Perf. Gastric Ulcer, Ureterolithiasis, urinary tract infection. ED course: Pt with epigastric pain that radiates to back, most likely acute exacerbation of her gastritis vs pancreatitis, will get labs and CT abdomen to rule out acute cause of pain, given antacids and GI cocktail to see if helps. . 12:29 Data reviewed: vital signs, nurses notes, lab test result(s), radiologic studies, CT rn scan, and as a result, I will discharge patient. Counseling: I had a detailed discussion with the patient and/or guardian regarding: the historical points, exam findings, and any diagnostic results supporting the discharge/admit diagnosis, lab results, radiology results, the need for outpatient follow up, to return to the emergency department if symptoms worsen or persist or if there are any questions or concerns that arise at home. 03/02 09:36 Order name: CBC with Diff; Complete Time: 11:57 rn 03/02 12:30 Interpretation: Within normal limits. rn 03/02 09:36 Order name: CMP; Complete Time: 11:57 rn 03/02 12:30 Interpretation: Within normal limits. rn 03/02 09:36 Order name: Lipase; Complete Time: 11:57 rn 03/02 12:30 Interpretation: Within normal limits. rn 03/02 09:36 Order name: CT Abd/Pelvis - IV Contrast Only; Complete Time: 11:57 rn 03/02 12:30 Interpretation: No acute disease. rn 03/02 10:41 Order name: Urine Dipstick-Ancillary; Complete Time: 11:57 EDMS 03/02 12:30 Interpretation: Normal except: UBLD 1+. rn 03/02 10:45 Order name: Urine --Ancillary (enter results); Complete Time: 11:57 eb 03/02 09:36 Order name: IV Saline Lock; Complete Time: 10:28 rn 03/02 09:36 Order name: Labs collected and sent; Complete Time: 10:33 rn 03/02 09:36 Order name: Urine Dipstick-Ancillary (obtain specimen); Complete Time: 10:40 rn 03/02 09:36 Order name: Urine Test (obtain specimen); Complete Time: 10:41 rn 03/02 12:30 Interpretation: Within normal limits. rn Administered Medications: 10:32 Drug: NS 0.9% 1000 ml Route: IV; Rate: 1 bolus; Site: right antecubital; hb 12:00 Follow up: Response: No adverse reaction; IV Status: Completed infusion; IV Intake: jl7 1000ml 10:32 Drug: GI Cocktail without - (Maalox Suspension 30 ml, Lidocaine Liquid 2 % 15 hb ml) Route: PO; 13:32 Follow up: Response: No adverse reaction jl7 10:32 Drug: ProTONIX (pantoprazole) 40 mg Route: IVP; Site: right antecubital; hb 13:32 Follow up: Response: No adverse reaction jl7 10:33 Drug: Zofran (Ondansetron) 4 mg Route: IVP; Site: right antecubital; hb 13:32 Follow up: Response: No adverse reaction jl7 Disposition Summary: 03/02/22 12:31 Discharge Ordered Location: Home rn Problem: an ongoing problem rn Symptoms: have improved rn Condition: Stable rn Diagnosis - Acute gastritis without bleeding rn - Abdominal pain, unspecified rn - Hiatal hernia rn Followup: rn - With: Private Physician - When: As needed - Reason: Recheck today's complaints, Re-evaluation by your physician Discharge Instructions: - Discharge Summary Sheet rn - Abdominal Pain, Adult rn - Gastritis, Adult rn - Hiatal Hernia rn Forms: - Medication Reconciliation Form rn - Thank You Letter 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 - Prescription Opioid Use rn Prescriptions: - Protonix 40 mg Oral Tablet - take 1 tablet by ORAL route once daily; 30 tablet; Refills: 0, Product rn Selection Permitted Signatures: Dispatcher [employer] EDMS Erik Erwin MD MD rn Baxter, Heather RN Savana Yang RN RN kr3 Tania Webber RN jl7 Corrections: (The following items were deleted from the chart) 09:52 09:49 Constitutional: Negative for fever, chills, and weight loss, Eyes: Negative for rn injury, pain, redness, and discharge, Neck: Negative for injury, pain, and swelling, Cardiovascular: Negative for chest pain, palpitations, and edema, Respiratory: Negative for shortness of breath, cough, wheezing, and pleuritic chest pain, Abdomen/GI: + epigastric abd pain, + nausea Back: Negative for injury and pain, MS/Extremity: Negative for injury and deformity, Skin: Negative for injury, rash, and discoloration, Neuro: Negative for headache, weakness, numbness, tingling, and seizure, rn
[2022-03-02 13:55] VITALS: O2SAT 99
[2022-03-02 14:00] VITALS: BP 106/64; TEMP 97.9
== END 2022-03-02 13:34 | disposition home or self-care (01) ==
LOC: ER 09:10
DX: K29.00 Acute gastritis without bleeding (principal); K44.9 Diaphragmatic hernia without obstruction or gangrene; Z88.5 Allergy status to narcotic agent; Z88.6 Allergy status to analgesic agent
CPT/HCPCS: 96361; 85025; 36415; 81025; 81003; 83690; 80053; 74177; 96375; 96374; 99284; Q9967; C9113; J7030; J2405

== ENCOUNTER 2022-10-16 23:04 | Emergency (ER) | payer OTHER ==
--- OUTSIDE RECORDS SUMMARY | 2022-10-16 23:07 | XMS REPORT | Continuity of Care Document ---
:1995 Author Organization [facility] t Address [address] [place] [address] Care Team Providers Name Role Phone G_Papred Attending Clinician Unavailable White_M Attending Clinician Unavailable AFSANEH_MYRIAM Attending Clinician Unavailable Rutledge_L Attending Clinician Unavailable NOÉ DAVENPORT Attending Clinician Unavailable G_Pappas Admitting Clinician Unavailable White_M Admitting Clinician Unavailable AFSANEH_MELISSA Admitting Clinician Unavailable Rutledge_L Admitting Clinician Unavailable Payers Payer Name Policy Type Policy Number Effective Date Expiration Date [facility] [id number] 2020 COMMUNITY PLAN - 00:00:00 [facility] (MEDICAID HMO) Problems Condition Condition Condition Status [...] Active M [facility] subcutaneo Subcutaneo 5-20 [facility] 00:00: Medical contracept Contracept 00 Gr oup [...] 00:00: Medical 00 Center Tramadol Propensi Active 2019[facility] adverse 00:00: Medical reaction 00 [facility] Acetamin Propensi Active 2019-[address] [facility]hen[facility] ty to 2[facility]07 [facility] deine adverse 00:00: Medical reaction 00 [facility] Social History Social Habit Start Date Stop Date Quantity Comments Source Tobacco use and 2019-04-08 2019-04-08 Smokeless [address] [facility] exposure [facility]:00[facility]00 00:00:00 non-user [facility] Alcohol intake 2019-04-08 2019-04-08 [facility]00 of alcohol [facility] (finding) Sex Assigned At [address] [facility] St Yoana kes 00:00:00 00:00:00 [facility] Smoking Status Start Date Stop Date Source Never smoked tobacco [facility] Medications Ordered Filled Start Stop Current Ordering [...] (six) hours as needed for Flatulence . dexlansopra 2020-0 Yes 60mg QD Take [address] [address] zole 60 mg 2-08 by mouth [facility] capsule 07:04: daily. [facility] Bifidobacte 2020-0 Yes Take by [facility] rium 2-08 [...] Source BP Diastolic 2021-10-14 00:00:00 87 mm[Hg] [facility] Height 2021-10-14 00:00:00 62 [in_i] [facility] BMI (Body Mass 2021-10-14 00:00:00 30.4 kg/m2 [facility] Medical Index) Group BP Systolic 2021-10-14 00:00:00 125 mm[Hg] [facility] Body Weight 2021-10-14 00:00:00 166 [lb_av] [facility] BP Diastolic 2021-07-19 00:00:00 89 mm[Hg] [facility] Height 2021-07-19 00:00:00 62 [in_i] [facility] BMI (Body Mass 2021-07-19 00:00:00 30.7 kg/m2 [facility] Medical Index) Group BP Systolic 2021-07-19 00:00:00 136 mm[Hg] [facility] Body Weight 2021-07-19 00:00:00 168 [lb_av] [facility] BP Diastolic 2021-02-26 00:00:00 71 mm[Hg] [facility] BP Systolic 2021-02-26 00:00:00 123 mm[Hg] [facility] Body Weight 2021-02-26 00:00:00 158.5 [lb_av] [facility] Procedures Procedure Date / Time Performed Performing Clinician [facility] e Dilation and Curettage 2020-01-31 00:00:00 [facility] Laparoscopy 2020-01-15 00:00:00 [facility] Endoscopy 2019-01-30 00:00:00 [facility] Plan of Care Planned Activity Planned Date Details Comments Source Future Scheduled 2021-10-[address] [facility] Test 00:00:00 (#1) [code = [facility] INFLUENZA VACCINE (#1)] Diagnostic Test 2021-10-14 urinalysis, dipstick [facility] Pending 00:00:00 [code = urinalysis, Group dipstick] Diagnostic Test 2021-10-14 [place], vaginal [facility] lucy [facility] Pending 00:00:00 [code = [place], Group vaginal] Future Scheduled 2021-03-[address] [facility] Test 00:00:00 (12+) [code = [facility] DEPRESSION SCREENING (12+)] Future Scheduled 2020-04-[address] [facility] Test 00:00:00 [facility] r Screening (12+) [code = Tobacco Cessation Counseling and Screening (12+)] Future Scheduled 2015-10-[address] [facility] Test 00:00:00 malignant neoplasm Medical C enter of cervix (procedure) [code = 783493040] Future Scheduled 2013 DTAP/TDAP/TD [facility] Test 00:[facility]00 VACCINES (1 - Tdap) Medical Center [code = DTAP/TDAP/TD VACCINES (1 - Tdap)] Future Scheduled [address] [facility] Test 00:00:00 SCREENING [code = Medical nter HEPATITIS C SCREENING] Future Scheduled 1995-04-25 COVID-[address] [facility] Test 00:00:00 (#1) [code = Medical Center COVID-19 VACCINE (#1)] Encounters Start End Encounter Admission Attending Care Care Encounter Source Date/Time Date/Time Type Type Clinicians Facility Department ID 2021-10-14 2021-10-14 [facility] [id number] [place] 00:00:00 00:00:00 0815 [facility] 2021-10-14 2021-10-14 [place] - [id number] M [facility] 00:00:00 00:00:00 Discovery prashant Ornelas MD: [address] [address] , Ph. [phone] 2021-10-08 2021-10-08 Outpatient White_M [facility] [id number] [place] 00:00:00 00:00:00 0809 Medical Group 2021-09-12 2021-09-12 Outpatient LISTER[facility]LUISA [facility] [id number] [place] 12:41:00 12:41:00 SSA 0714 [facility] Program 2021-07-19 2021-07-19 [place] [id number] [place] 08:37:00 08:37:00 0523 Medical Group 2021-07-19 2021-07-19 [place] [id number] [place] 03:43:00 03:43:00 0520 [facility] Group 2021-07-19 2021-07-19 [place] - [id number] M at[place]or 00:00:00 00:00:00 Discovery prashant rOnelas MD: Darlene [address] [place] [address] , Ph. [phone] 2021-07-18 2021-07-18 [facility] [id number] [place] 03:49:00 03:49:00 0519 Medical Group 2021-02-26 2021-02-26 [facility] [id number] [place] 10:57:00 10:57:00 1228 Medical Group 2021-02-26 2021-02-26 [facility] [id number] [place] 10:57:00 10:57:00 1230 Medical Group 2021-02-26 2021-02-26 Outpatient LISTER_LUISA VILLATORO MEHOP [id number] [place] 02:47:00 02:47:[address] [facility] Outre h Program 2021-02-26 2021-02-26 Diana [facility] [place] - [id number] M at[place]or 00:00:00 00:00:00 Discovery prashant Wallace [facility]-: [address] [address] , Ph. [phone] 2021-02-25 2021-02-25 Outpatient Rutledge_L [facility] [id number] [place] 09:08:00 09:08:00 1227 Medical [facility] 2021-02-01 2021-02-01 Outpatient Rutledge_L [facility] [id number] [place] 11:26:00 11:26:00 1203 [facility] Results Test Description Test Time Test Comments [...] normal RBCs (test code = RBCs) negative [facility] (dipstick) panel - [id number] 09:26:00 Test Item Value Reference Range Interpretation Comments Leukocytes (test code = Leukocytes) Small Nitrite (test code = Nitrite) negative Urobilinogen (test code = .2 Urobilinogen) Protein (test code = Protein) Negative pH (test code = pH) 6.0 Blood (test code = Blood) Small Specific [place] (test code = 1.030 Specific [place]) Ketone (test code = Ketone) Negative Bilirubin (test code = Bilirubin) Negative Glucose (test code = Glucose) Negative Appearance (test code = Appearance) Clear Color (test code = Color) Yellow [facility] 2000 panel - Serum or Plasma [...] Serum or Plasma (test code = 6768-6) [facility] 1996 panel - Serum or [id number] 10:02:00 Test Item Value Reference Range Interpretation Comments cholesterol level (test code = 137 mg/dL 150-200 L cholesterol level) triglycerides level (test code = 76 mg/dL <150 triglycerides level) HDL cholesterol (test code = HDL 37 mg/dL >65 L cholesterol) LDL cholesterol direct (test code = 95 mg/dL <100 LDL cholesterol direct) cholesterol risk ratio (test code = 3.702 cholesterol risk ratio) [facility] - cancer history assessment [id number] 08:26:00 Test Item Value Reference Range Interpretation Comments [facility] - cancer history meets criteria A assessment result (test code = [facility] - cancer history assessment result) [facility] W Auto Differential panel - [id number] 00:00:00 Test Item Value Reference Range Interpretation Comments white blood count (test code = 7.2 K/uL 4.0-11.5 white blood count) red blood count (test code = red 5.17 M/uL 3.80-5.20 blood count) hemoglobin (test code = 15.0 g/dL 10.5-15.7 hemoglobin) hematocrit (test code = 44.9 % 34.0-50.0 hematocrit) MCV [Entitic volume] (test code = 86.8 fL 86-100 72524-9) mean corpuscular hemoglobin (test 29.0 pg 26.2-33.4 [...] 44.4-80.1 leukocytes in Blood (test code = 78887-1) Immature granulocytes [#/volume] 0.0 K/uL 0.0-0.03 in Blood (test code = 09009-6) lymphocyte% (test code = 26.4 % 10.0-50.0 lymphocyte%) mono % (test code = mono %) 9.0 % 3.6-12.0 eos % (test code = eos %) 1.9 % 0.0-5.4 Basophils/100 leukocytes in 0.4 % 0.1-1.2 Unspecified specimen (test code = 03577-2) Band form neutrophils [#/volume] 4.46 K/uL 1.56-6.13 in Blood (test code = 72851-2) Lymphocytes [#/volume] in 1.9 K/uL 1.18-3.74 Unspecified specimen by Automated count (test code = 95523-7) mono # (test code = mono #) 0.65 K/uL 0.24-0.86 eos # (test code = eos #) 0.14 K/uL 0.04-0.36 basophil # (test code = basophil 0.03 K/uL 0.01-0.08 #) NRBC% (test code = NRBC%) 0 /100 WBC 0-0.2 NRBC# (test code = NRBC#) 0 K/uL [facility] panel, method unspecified - [id number] 00:00:00NeutrophilsBandLymphocyteAtypical LymphMonocyteEosinophilBasophilAbs Neutrophil Count (Man)Abs LymphCount (Man)Abs Monocyte Count (Man)Abs Eosinophil Count (Man)Abs Basophil Count (Man)Platelet EstimatePlatelet MorphologyAnisocytosisMicrocytosisMataH. C. Watkins Memorial HospitalHemoglobin A1c/Hemoglobin.total in [id number] 00:00:00 Test Item Value Reference Range Interpretation Comments Hemoglobin A1c [Mass/volume] in Blood 5.4 % 4.0-6.0 (test code = 96560-3) [facility] HospitalThyrotropin [Units/volume] in Serum or [id number] 00:00:00 Test Item Value Reference Range Interpretation Comments Thyrotropin [Units/volume] in 1.36 uIU/mL 0.36-3.74 Serum or Plasma (test code = 3016-3) [facility] HospitalThyroxine (T4) free [Mass/volume] in Serum or Plasma 2021-02-26 00:00:00 Test Item Value Reference Range Interpretation Comments free T4 (test code = free T4) 1.12 NG/dL 0.93-1.7 [facility] HospitalCT, [id number] 04:05:00FINAL REPORT CT, ABDOMEN \T\ PELVIS, WITH IV CONTRAST CLINICAL HISTORY: RLQ abdo dipak pain, appendicitis suspected (Age > 14y) TECHNIQUE: Multiple axial images of the abdomen and pelvis were performed after the uncomplicated administration of IV contrast. Coronal and sagittal reformats obtained. Oral contrast was not administered. This exam was performed according to our merged with [facility] dose-optimization program, which includes automated exposure [...] MDReport Verified Date/Time: 04/09/2019 04:05:55 PREGNANCY SCREEN, [id number] 03:27:00 Test Item Value Reference Range Interpretation Comments TEST URINE (BEAKER) (test Negative code = 583) URINALYSIS W/ REFLEX URINE [id number] 03:25:00 Test Item Value Reference Range Interpretation [...] code = 516) SOURCE(BEAKER) (test code = 2405) Conveyor Worker ID - [auto]Conveyor Worker ID - techBASIC METABOLIC [id number] 02:53:00 Test Item Value Reference Range Interpretation [...] 1092) DATA TO CALCULA TE ESTIMATED GFR. Conveyor Worker ID - ZARIA [id number] 02:12:00 Test Item Value Reference Range Interpretation Comments PHOSPHORUS (BEAKER) (test code = 3.3 mg/dL 2.3-4.7 604) Conveyor Worker ID - ZARIA [id number] 02:12:00 Test Item Value Reference Range Interpretation Comments MAGNESIUM (BEAKER) (test code = 2.1 mg/dL 1.6-2.6 627) Conveyor Worker ID - ZARIA LHEPATIC FUNCTION [id number] 02:12:00 Test Item Value Reference Range Interpretation [...] (test code = 14 U/L 6-55 347) Conveyor Worker ID - ZARIA [id number] 02:12:00 Test Item Value Reference Range Interpretation Comments LIPASE (BEAKER) (test code = 749) 39 U/L 8-78 Conveyor Worker ID - ZARIA LCBC W/PLT COUNT & AUTO [id number] 01:52:00 Test Item Value Reference Range Interpretation [...] % 0-1 PERCENT (BEAKER) (test code = 2801)
[2022-10-17] MEDS ORDERED: BENZONATATE 100 MG CAP PO ONE (00:24)
[2022-10-17] MEDS ORDERED: METHYLPREDNISOLONE 125 MG INJ ONE (00:24)
[2022-10-17] MEDS ORDERED: IPRATROPIUM BROM 0.5MG/2.5ML ONE (00:24)
[2022-10-17] MEDS ORDERED: ALBUTEROL 2.5 MG/3 ML NEB SOL ONE (00:24)
--- NOTE | 2022-10-17 01:14 | ER ---
Nurse's Notes [facility] Name: Yanelis Gallagher Age: 26 yrs Sex: Female : 1995 Arrival Date: 10/16/2022 Time: 23:04 Bed 11 Private MD: Diagnosis: Unspecified asthma with (acute) exacerbation Presentation: 10/16 23:12 Chief complaint: Patient states: she was seen here a few weeks ago for asthma cm10 exacerbation, followed up with PCP and was given medication to take for asthma. pt states that tonight she just feels like she can't catch her breath. Coronavirus screen: Vaccine status: Patient reports receiving the 2nd dose of the covid vaccine. Client denies travel out of the [place] in the last 14 days. Ebola Screen: Patient denies travel to an Ebola-affected area in the 21 days before illness onset. No symptoms or risks identified at this time. Initial Sepsis Screen: Does the patient meet any 2 criteria? No. Patient's initial sepsis screen is negative. Does the patient have a suspected source of infection? No. Patient's initial sepsis screen is negative. Risk Assessment: Do you want to hurt yourself or someone else? Patient reports no desire to harm self or others. Onset of symptoms was October 16, 2022. 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 - Social history:: Smoking status: Patient denies any tobacco usage or history of. Screenin/18 00:23 [facility] ED Fall Risk Assessment (Adult) History of falling in the last 3 months, kl including since admission No falls in past 3 months (0 pts) Confusion or Disorientation No (0 pts) Intoxicated or Sedated No (0 pts) Impaired Gait No (0 pts) Mobility Assist Device Used No (0 pt) Altered Elimination No (0 pt) Score/Fall Risk Level 0 - 2 = Low Risk Oriented to surroundings, Educated pt \T\ family on fall prevention, incl call for assistance when getting out of bed. Abuse screen: Denies threats or abuse. Nutritional screening: No deficits noted. Tuberculosis screening: No symptoms or risk factors identified. Assessment: 00:22 General: Appears in no apparent distress. comfortable, Behavior is calm, cooperative. kl Pain: Denies pain. Neuro: No deficits noted. Cardiovascular: Rhythm is regular. Respiratory: Airway is patent Respiratory effort is even, unlabored, Breath sounds are clear bilaterally. the patient has mild shortness of breath. GI: No deficits noted. No signs and/or symptoms were reported involving the gastrointestinal system. : No deficits noted. No signs and/or symptoms were reported regarding the genitourinary system. EENT: No deficits noted. No signs and/or symptoms were reported regarding the EENT system. Derm: No deficits noted. No signs and/or symptoms reported regarding the dermatologic system. 01:20 Reassessment: Patient appears in no apparent distress at this time. Patient denies pain kl at this time. Patient states feeling better. Patient states symptoms have improved. Vital Signs: 10/16 23:12 BP 132 / 88; Pulse 94; Resp 18; Temp 97.9; Pulse Ox 100% ; Weight 81.65 kg; Height 5 cm10 ft. 4 in. ; Pain 0/10; 10/17 00:23 Pulse 97; Pulse Ox 96% on R/A; kl 01:21 BP 116 / 70; Pulse 92; Resp 19; Pulse Ox 98% ; kl 10/16 23:12 Body Mass Index 30.90 (81.65 kg, 162.56 cm) cm10 10/16 23:12 Pain Scale: Adult cm10 ED Course: 10/16 23:05 Patient arrived in ED. jj6 23:14 Triage completed. cm10 23:15 Arm band placed on Patient placed in waiting room. cm10 23:20 Hossein Gaytan PA is PHCP. cp 23:20 Lexa Fields MD is Attending Physician. cp 10/17 00:23 No provider procedures requiring assistance completed. Patient did not have IV access kl during this emergency room visit. Administered Medications: 00:22 Drug: MethylPREDNISolone Sodium Succinate IM 125 mg Route: IM; Site: right kl ventrogluteal; 01:02 Follow up: Response: No adverse reaction 00:22 Drug: Albuterol Inhalation 2.5 mg Route: Inhalation; kl 00:22 Drug: Ipratropium Inhalation Aerosol 0.5 mg Route: Inhalation; kl 01: Follow up: Response: No adverse reaction; Marked relief of symptoms kl 00: Drug: Tessalon Perle PO 200 mg Route: PO; kl 01: Follow up: Response: No adverse reaction kl Outcome: 01:13 Discharge ordered by . cp 01:21 Discharged to home ambulatory. kl : Condition: improved 01:21 Discharge instructions given to patient, Instructed on discharge instructions, follow up and referral plans. medication usage, Demonstrated understanding of instructions, follow-up care, medications, Prescriptions given X 4. 01:22 Patient left the ED. Signatures: Corrie Floyd RN RN Hossein Erickson PA PA cp Jeffries, Jennifer [email or web address] Emerita Saunders RN RN cm10
--- NOTE | 2022-10-17 01:14 | EDPHYS ---
Physician Documentation [facility] Name: Yanelis Gallagher Age: 26 yrs Sex: Female : 1995 Arrival Date: 10/16/2022 Time: 23:04 Bed 11 Private MD: ED Physician Lexa Fields HPI: 10/17 00:00 This 26 yrs old Female presents to ER via Ambulatory with complaints of Asthma cp Exacerbation, Breathing Difficulty. 00:00 The patient has shortness of breath at rest. Onset: The symptoms/episode began/occurred cp tonight. 00:00 Duration: The symptoms are continuous. Associated signs and symptoms: Pertinent cp positives: productive cough, Pertinent negatives: chest pain, fever, vomiting. Severity of symptoms: in the emergency department the symptoms are unchanged despite home interventions. 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 - Social history:: Smoking status: Patient denies any tobacco usage or history of. ROS: 10/17 00:05 Constitutional: Negative for body aches, chills, fever, poor PO intake. cp 00:05 Eyes: Negative for injury, pain, redness, and discharge. cp 00:05 ENT: Negative for drainage from ear(s), ear pain, sore throat, difficulty swallowing, difficulty handling secretions. 00:05 Cardiovascular: Negative for chest pain, edema, palpitations. 00:05 Respiratory: Positive for cough, shortness of breath. 00:05 Abdomen/GI: Negative for abdominal pain, vomiting, diarrhea, constipation. 00:05 Back: Negative for pain at rest, pain with movement. 00:05 : Negative for urinary symptoms. 00:05 Neuro: Negative for altered mental status, dizziness, headache, weakness. 00:05 All other systems are negative. Exam: 00:10 Constitutional: The patient appears in no acute distress, alert, awake, cp non-diaphoretic, non-toxic, well developed, well nourished. 00:10 Head/Face: Normocephalic, atraumatic. cp 00:10 Eyes: Periorbital structures: appear normal, Conjunctiva: normal, no exudate, no injection, Sclera: no appreciated abnormality, Lids and lashes: appear normal, bilaterally. 00:10 ENT: External ear(s): are unremarkable, Nose: is normal, Mouth: Lips: moist, Oral mucosa: pink and intact, moist, Posterior pharynx: is normal, airway is patent, no erythema, no exudate. 00:10 Neck: ROM/movement: is normal, is supple, without pain, no range of motions limitations. 00:10 Chest/axilla: Inspection: normal. 00:10 Cardiovascular: Rate: normal, Rhythm: regular. 00:10 Respiratory: the patient does not display signs of respiratory distress, Respirations: normal, no use of accessory muscles, no retractions, labored breathing, is not present, Breath sounds: bronchial sounds, that are mild, are heard diffusely, stridor, is not appreciated. 00:10 Abdomen/GI: Inspection: abdomen appears normal, Palpation: abdomen is soft and non-tender, in all quadrants. 00:10 Back: pain, is absent, ROM is normal. 00:10 Neuro: Orientation: to person, place \T\ time. Mentation: is normal, Motor: moves all fours, strength is normal, Sensation: is normal. Vital Signs: 10/16 23:12 BP 132 / 88; Pulse 94; Resp 18; Temp 97.9; Pulse Ox 100% ; Weight 81.65 kg; Height 5 cm10 ft. 4 in. ; Pain 0/10; 10/17 00:23 Pulse 97; Pulse Ox 96% on R/A; kl 01:21 BP 116 / 70; Pulse 92; Resp 19; Pulse Ox 98% ; kl 10/16 23:12 Body Mass Index 30.90 (81.65 kg, 162.56 cm) cm10 10/16 23:12 Pain Scale: Adult cm10 MDM: 10/16 23:20 Patient medically screened. cp 10/17 01:12 Data reviewed: vital signs, nurses notes. cp 01:12 Differential diagnosis: asthma, Bronchitis pneumonia, Pneumothorax. I considered the cp following discharge prescriptions or medication management in the emergency department Medications were administered in the Emergency Department. See MAR. ED course: VSS. Symptoms markedly improved after treatment. Will discharge to home for continued monitoring. Administered Medications: 00: Drug: MethylPREDNISolone Sodium Succinate IM 125 mg Route: IM; Site: right kl ventrogluteal; 01:02 Follow up: Response: No adverse reaction kl 00: Drug: Albuterol Inhalation 2.5 mg Route: Inhalation; kl 00: Drug: Ipratropium Inhalation Aerosol 0.5 mg Route: Inhalation; kl 01: Follow up: Response: No adverse reaction; Marked relief of symptoms kl 00: Drug: Tessalon Perle PO 200 mg Route: PO; kl 01: Follow up: Response: No adverse reaction kl Disposition Summary: 10/17/22 01:13 Discharge Ordered Location: Home cp Problem: an acute exacerbation cp Symptoms: have improved cp Condition: Stable cp Diagnosis - Unspecified asthma with (acute) exacerbation cp Followup: cp - With: Private Physician - When: 2 - 3 days - Reason: Recheck today's complaints Discharge Instructions: - Discharge Summary Sheet cp - Asthma, Adult cp Forms: - Work release form kl - Medication Reconciliation Form cp - Thank You Letter cp - Antibiotic Education cp - Prescription Opioid Use cp - Patient Portal Instructions cp - Leadership Thank You Letter cp Prescriptions: - budesonide-formoterol 80-4.5 mcg/actuation Inhalation HFA Aerosol Inhaler - inhale 2 inhalation by INHALATION route every 12 hours; 1 unit; Refills: 0, cp Product Selection Permitted - Tessalon Perles 100 mg Oral Capsule - take 1 capsule by ORAL route every 8 hours As needed; 15 capsule; Refills: 0, cp Product Selection Permitted - Albuterol Sulfate 2.5 mg /3 mL (0.083 %) Inhalation Solution for Nebulization - inhale 1 unit by NEBULIZATION route every 8 hours As needed; 1 unit; Refills: cp 0, Product Selection Permitted - Prednisone 20 mg Oral Tablet - take 2 tablets by ORAL route once daily for 5 days; 10 tablet; Refills: 0, cp Product Selection Permitted Signatures: Corrie Floyd RN Hossein Arreguin PA PA cp Martinez, Clarissa, RN RN cm10
[2022-10-17 01:50] VITALS: TEMP 97.9
[2022-10-17 01:53] VITALS: BP 116/70; O2SAT 98
== END 2022-10-17 01:22 | disposition home or self-care (01) ==
LOC: ER 23:04
DX: J45.901 Unspecified asthma with (acute) exacerbation (principal); Z88.5 Allergy status to narcotic agent
CPT/HCPCS: 96372; 99284; J7613; J7644; J2930

== ENCOUNTER 2024-02-01 09:39 | Emergency (ER) | payer OTHER ==
[2024-02-01] MEDS ORDERED: KETOROLAC 30 MG/ML INJ ONE (10:42)
[2024-02-01] MEDS ORDERED: PHENAZOPYRIDINE 100MG TAB PO ONE (10:42)
[2024-02-01 11:04] LABS: Specific Gravity 1.025 (1.005-1.030)
[2024-02-01 11:19] LABS: Specific Gravity 1.025 (1.005-1.030); Transitional Epithelial <5 /HPF (None Seen); Urine Bacteria <20 /HPF (<20); Urine Bilirubin NEGATIVE (Negative); Urine Blood 3+ (OVER) (Negative); Urine Clarity Extremely Turbid (Clear); Urine Color Light-Orange (Yellow); Urine Culture Reflex Order REFLEXED; Urine Glucose NEGATIVE (Negative); Urine Ketones NEGATIVE (Negative); Urine Micro Reflex YN NO BILL MICROSCOPIC; Urine Mucus 1+ /HPF (None Seen); Urine Nitrite NEGATIVE (Negative); Urine Protein 1+ (Negative); Urine RBC >50 /HPF (None Seen); Urine Urobilinogen Normal (Normal); Urine WBC >50 /HPF (<5); Urine pH 5.5 (5.0-7.0)
--- NOTE | 2024-02-01 11:42 | ER ---
Nurse's Notes [facility] Name: Yanelis Glalagher Age: 28 yrs Sex: Female : 1995 Arrival Date: 02/01/2024 Time: 09:39 Bed 18 Private MD: Diagnosis: UTI/ Urinary tract infection, site not specified Presentation: 01/31 09:52 Chief complaint: Patient states: this morning pain to lower abdomen, pain with iw urination and light pink blood in urine. Coronavirus screen: At this time, the client does not indicate any symptoms associated with coronavirus-19. Ebola Screen: No symptoms or risks identified at this time. Risk Assessment: Do you want to hurt yourself or someone else? Patient reports no desire to harm self or others. 09:52 Method Of Arrival: Ambulatory iw 09:52 Acuity: THOMAS 3 iw 09:52 Initial Sepsis Screen: Does the patient meet any 2 criteria? HR > 90 bpm. Does the iw patient have a suspected source of infection?. Onset of symptoms was February 01, 2024. Triage Assessment: 10:55 General: Appears in no apparent distress. uncomfortable, Behavior is calm, cooperative. cm10 Pain: Complains of pain in suprapubic area Pain does not radiate. Pain currently is 9 out of 10 on a pain scale. Neuro: No deficits noted. Level of Consciousness is awake, alert, obeys commands, Oriented to person, place, time, situation, Appropriate for age. Respiratory: No deficits noted. Airway is patent Respiratory effort is even, unlabored, Respiratory pattern is regular, symmetrical. : Reports burning with urination, urgency. Derm: No deficits noted. Skin is healthy with good turgor. Musculoskeletal: No deficits noted. Range of motion: intact in all extremities. 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 - Infectious Disease History:: Denies. - Social history:: Smoking status: unknown. Screenin:56 [facility] ED Fall Risk Assessment (Adult) History of falling in the last 3 months, cm10 including since admission No falls in past 3 months (0 pts) Confusion or Disorientation No (0 pts) Intoxicated or Sedated No (0 pts) Impaired Gait No (0 pts) Mobility Assist Device Used No (0 pt) Altered Elimination No (0 pt) Score/Fall Risk Level 0 - 2 = Low Risk Oriented to surroundings, Maintained a safe environment, Hourly rounding (assess needs \T\ fall precautionary measures) done. Abuse screen: Denies threats or abuse. Denies injuries from another. Nutritional screening: No deficits noted. Tuberculosis screening: No symptoms or risk factors identified. Assessment: 11:53 Reassessment: Patient appears in no apparent distress at this time. No changes from cm10 previously documented assessment. Patient and/or family updated on plan of care and expected duration. Pain level reassessed. Patient is alert, oriented x 3, equal unlabored respirations, skin warm/dry/pink. Patient states feeling better. Patient states symptoms have improved. Vital Signs: 09:52 BP 121 / 74; Pulse 100; Resp 18; Temp 98.2; Pulse Ox 100% ; Weight 78.93 kg; Height 5 iw ft. 3 in. ; Pain 9/10; 11:53 BP 112 / 73; Pulse 99; Resp 16; Pulse Ox 99% ; cm10 09:52 Body Mass Index 30.82 (78.93 kg, 160.02 cm) iw 09:52 Pain Scale: Adult iw ED Course: 09:41 Patient arrived in ED. ra3 09:42 [facility] sb4 09:42 Km Rivera MD is Attending Physician. sb4 09:53 Triage completed. iw 10:30 Emerita Saunders, RN is Primary Nurse. cm10 10:48 Test, Urine Sent. cm10 10:48 UAM Sent. cm10 10:48 Urine collected: clean catch specimen, cloudy. cm10 10:57 Patient has correct armband on for positive identification. Bed in low position. Call cm10 light in reach. Side rails up X2. Provided Education on: ER process and procedures.. 11:53 No provider procedures requiring assistance completed. IV discontinued, intact, cm10 bleeding controlled, No redness/swelling at site. Pressure dressing applied. 11:54 Arm band placed on right wrist. cm10 Administered Medications: 10:48 Drug: Phenazopyridine PO 200 mg PO once Route: PO; cm10 11:50 Follow up: Response: No adverse reaction cm10 10:48 Drug: Ketorolac IM 30 mg IM once Route: IM; Site: left gluteus; cm10 11:50 Follow up: Response: No adverse reaction cm10 11:50 Drug: Trimethoprim-Sulfamethoxazole PO (160 mg-800 mg (DS) 1 tablet PO once Route: PO; cm10 11:53 Follow up: Response: Medication administered at discharge. cm10 11:50 Drug: Fluconazole PO 200 mg PO once Route: PO; cm10 11:53 Follow up: Response: Medication administered at discharge. cm10 Medication: 11:54 VIS not applicable for this client. cm10 Outcome: 11:41 Discharge ordered by MD. sb4 11:53 Discharged to home ambulatory, cm10 11:53 Condition: good 11:53 Discharge instructions given to patient, Instructed on discharge instructions, follow up and referral plans. medication usage, Demonstrated understanding of instructions, follow-up care, medications, Prescriptions given X 1, 11:54 Patient left the ED. cm10 Signatures: Rosemarie Duke, RN RN Darshana Lopez, PA-C PA-C sb4 Emerita Saunders RN RN 10 Veronica Fox ra3 Corrections: (The following items were deleted from the chart) 09:54 09:52 Resp 18bpm; Pulse Ox 100%; Temp 98.2F; Pain 9/10, Adult; [facility]
--- NOTE | 2024-02-01 11:42 | EDPHYS ---
Physician Documentation [facility] Name: Yanelis Gallagher Age: 28 yrs Sex: Female : 1995 Arrival Date: 02/01/2024 Time: 09:39 Bed 18 Private MD: ED Physician Km Rivera HPI: 01/31 10:42 This 28 yrs old Female presents to ER via Ambulatory with complaints of Pelvic sb4 Pain. 10:42 patient states she woke up this morning with lower abdominal cramping, burning with sb4 urination, and blood tinged urine. states she finished antibiotics last week for treatment of gonorrhea and chlamydia. denies any fever, flank pain, nausea, or vomiting. 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 - Infectious Disease History:: Denies. - Social history:: Smoking status: unknown. ROS: 10:42 Constitutional: Negative for fever, chills, and weight loss, sb4 10:42 : Positive for urinary symptoms, pelvic pain, urinary frequency, small amounts, hematuria, burning with urination, 10:42 All other systems are negative, Exam: 10:42 Head/Face: Normocephalic, atraumatic. Eyes: Extra-ocular motions intact. Periorbital sb4 areas with no swelling, redness, or edema. ENT: Mucous membranes moist. Respiratory: No increased work of breathing, no retractions or nasal flaring. Abdomen/GI: Soft, non-tender, no distension. Skin: Warm, dry with normal turgor. Normal color with no rashes, no lesions, and no evidence of cellulitis. 10:42 Constitutional: The patient appears alert, awake, uncomfortable, Vital Signs: 09:52 BP 121 / 74; Pulse 100; Resp 18; Temp 98.2; Pulse Ox 100% ; Weight 78.93 kg; Height 5 iw ft. 3 in. ; Pain 9/10; 11:53 BP 112 / 73; Pulse 99; Resp 16; Pulse Ox 99% ; cm10 09:52 Body Mass Index 30.82 (78.93 kg, 160.02 cm) iw 09:52 Pain Scale: Adult iw MDM: 09:58 Medical Screening Exam initiated sb4 12:03 Data reviewed: vital signs, nurses notes, lab test result(s), and as a result, I will sb4 discharge patient. Counseling: I had a detailed discussion with the patient and/or guardian regarding the historical points, exam findings, and any diagnostic results supporting the discharge/admit diagnosis, lab results, to return to the emergency department if symptoms worsen or persist or if there are any questions or concerns that arise at home. ED course: symptoms have improved after azo and ketoralac, urine is positive for UTI, sent for culture. will discharge with rx for bactrim and return precautiosn. 01/31 09:59 Order name: UAM; Complete Time: 11:20 sb4 01/31 09:59 Order name: Test, Urine; Complete Time: 11:05 sb4 01/31 11:21 Order name: Urine Culture EDMS Administered Medications: 10:48 Drug: Phenazopyridine PO 200 mg PO once Route: PO; cm10 11:50 Follow up: Response: No adverse reaction cm10 10:48 Drug: Ketorolac IM 30 mg IM once Route: IM; Site: left gluteus; cm10 11:50 Follow up: Response: No adverse reaction cm10 11:50 Drug: Trimethoprim-Sulfamethoxazole PO (160 mg-800 mg (DS) 1 tablet PO once Route: PO; cm10 11:53 Follow up: Response: Medication administered at discharge. cm10 11:50 Drug: Fluconazole PO 200 mg PO once Route: PO; cm10 11:53 Follow up: Response: Medication administered at discharge. cm10 Disposition Summary: 02/01/24 11:41 Discharge Ordered Notes: Location: Home sb4 Problem: new sb4 Symptoms: have improved sb4 Condition: Stable sb4 Diagnosis - UTI/ Urinary tract infection, site not specified sb4 Followup: sb4 - With: Emergency Department - When: As needed - Reason: Fever > 102 F, Worsening of condition Discharge Instructions: - Discharge Summary Sheet sb4 - Urinary Tract Infection, Adult, [id number] sb4 Forms: - Antibiotic Education sb4 - Patient Portal Instructions sb4 - Leadership Thank You Letter sb4 - Work release form cm10 Prescriptions: - Bactrim DS 800-160 mg Oral tablet - take 1 tablet ORAL route every 12 hours for 7 days; 14 tablet; Refills: 0, sb4 Product Selection Permitted Signatures: Dispatcher [employer] Rosemarie Sotelo, RN Darshana Coyle PAEmerita Gomez PA-C, RN RN cm10 Corrections: (The following items were deleted from the chart) : 09:59 Urinalysis W/Microscopic+U.LAB.BRZ ordered. EDMS EDMS :59 09:59 Test, Urine+UC.LAB.BRZ ordered. EDMS EDMS
[2024-02-01] MEDS ORDERED: SMZ./TMP. 800/160 MG TABLET ONE (11:46)
[2024-02-01] MEDS ORDERED: FLUCONAZOLE 100 MG TAB ONE (11:46)
[2024-02-01 12:21] VITALS: TEMP 98.2
[2024-02-01 12:23] VITALS: BP 112/73; O2SAT 99
== END 2024-02-01 11:54 | disposition home or self-care (01) ==
LOC: ER 09:39
DX: N39.0 Urinary tract infection, site not specified (principal)
CPT/HCPCS: 81001; 81025; 87077; 87086; 87088; 87186; 96372; 99284

== ENCOUNTER 2024-02-04 08:53 | Emergency (ER) | payer OTHER ==
[2024-02-04 09:34] LABS: Specific Gravity 1.024 (1.005-1.030)
[2024-02-04] MEDS ORDERED: NITROFURAN MACRO 100 MG CAP PO ONE (09:41)
[2024-02-04 09:46] LABS: Specific Gravity 1.024 (1.005-1.030); Sqamous Epithelial <5 /HPF (None Seen); Transitional Epithelial <5 /HPF (None Seen); Urine Bacteria 20-50 /HPF (<20); Urine Bilirubin NEGATIVE (Negative); Urine Blood 2+ (Negative); Urine Clarity Extremely Turbid (Clear); Urine Color Light-Yellow (Yellow); Urine Culture Reflex Order REFLEXED; Urine Glucose NEGATIVE (Negative); Urine Ketones NEGATIVE (Negative); Urine Microscopic Reflex YN ORDER UMIC; Urine Mucus 1+ /HPF (None Seen); Urine Nitrite NEGATIVE (Negative); Urine Protein TRACE (Negative); Urine RBC 21-50 /HPF (None Seen); Urine Urobilinogen Normal (Normal); Urine WBC 20-50 /HPF (<5); Urine Yeast (Budding) Trace /HPF (None Seen)
--- NOTE | 2024-02-04 09:57 | ER ---
Nurse's Notes [facility] Name: Yanelis Gallagher Age: 28 yrs Sex: Female : 1995 Arrival Date: 02/04/2024 Time: 08:53 Bed 8 Private MD: Diagnosis: UTI/ Urinary tract infection, site not specified Presentation: 02/03 09:05 Chief complaint: Patient states: Continued low back pain and pain with urination. jl7 Coronavirus screen: At this time, the client does not indicate any symptoms associated with coronavirus-19. Ebola Screen: No symptoms or risks identified at this time. Initial Sepsis Screen: Does the patient meet any 2 criteria? No. Patient's initial sepsis screen is negative. Does the patient have a suspected source of infection? No. Patient's initial sepsis screen is negative. Risk Assessment: Do you want to hurt yourself or someone else? Patient reports no desire to harm self or others. Onset of symptoms is unknown. 09:05 Method Of Arrival: Ambulatory [facility] 09:05 Acuity: THOMAS 3 jl7 Triage Assessment: 09:07 General: Appears in no apparent distress. uncomfortable, Behavior is calm, cooperative, jl7 appropriate for age. Pain: Complains of pain in abdomen and pelvis. 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 - Infectious Disease History:: Denies. - Social history:: Smoking status: Patient denies any tobacco usage or history of. - Family history:: not pertinent. - Hospitalizations: : No recent hospitalization is reported. Screenin:27 [facility] ED Fall Risk Assessment (Adult) History of falling in the last 3 months, ap3 including since admission No falls in past 3 months (0 pts) Confusion or Disorientation No (0 pts) Intoxicated or Sedated No (0 pts) Impaired Gait No (0 pts) Mobility Assist Device Used No (0 pt) Altered Elimination No (0 pt) Score/Fall Risk Level 0 - 2 = Low Risk Oriented to surroundings, Maintained a safe environment, Educated pt \T\ family on fall prevention, incl call for assistance when getting out of bed, Assessed \T\ reinforced patient's understanding of fall precautions, Hourly rounding (assess needs \T\ fall precautionary measures) done, Used ambulatory aids as needed (educated on \T\ assisted with), Used gait belt as appropriate. Abuse screen: Denies threats or abuse. Nutritional screening: No deficits noted. Tuberculosis screening: No symptoms or risk factors identified. Assessment: 09:26 General: Appears in no apparent distress. Behavior is calm, cooperative, appropriate ap3 for age. Pain: Complains of pain in pelvis and abdomen. Neuro: Level of Consciousness is awake, alert, obeys commands, Oriented to person, place, time, situation, Appropriate for age. Cardiovascular: Patient's skin is warm and dry. Respiratory: Airway is patent Respiratory effort is even, unlabored, Respiratory pattern is regular, symmetrical. : Reports burning with urination, urinary frequency. Vital Signs: 09:05 BP 134 / 82; Pulse 97; Resp 17; Pulse Ox 99% ; Weight 78.93 kg; Height 5 ft. 3 in. ; jl7 09:05 Body Mass Index 30.82 (78.93 kg, 160.02 cm) jl7 ED Course: 08:55 Patient arrived in ED. im 08:58 Erik Erwin MD is Attending Physician. rn 09:07 Triage completed. jl7 09:07 Arm band placed on right wrist. jl7 09:26 Becky Lowry, BRIE is Primary Nurse. ap3 09:26 Test, Urine Sent. ap3 09:26 Urinalysis w/ reflexes Sent. ap3 09:27 Patient has correct armband on for positive identification. Bed in low position. Call ap3 light in reach. Side rails up X 1. Provided Education on: call light education. 09:27 No provider procedures requiring assistance completed. ap3 10:14 Patient did not have IV access during this emergency room visit. ap3 Administered Medications: 09:43 Drug: Macrobid PO 100 mg PO once; administer with food Route: PO; ap3 10:14 Follow up: Response: No adverse reaction ap3 Medication: 10:14 VIS not applicable for this client. ap3 Outcome: 09:56 Discharge ordered by . rn 10:13 Discharged to home ambulatory, ap3 10:13 Condition: good 10:13 Discharge instructions given to patient, Instructed on discharge instructions, follow up and referral plans. medication usage, Demonstrated understanding of instructions, follow-up care, medications, Prescriptions given X 1, 10:14 Patient left the ED. ap3 Addendum: 02/07/2024 07:47 Addendum: Culture Results: Positive urine culture. No further action required. Bacteria e b sensitive to prescribed antibiotic. Signatures: Erik Erwin MD MD rn Leal, Jahala, RN RN jl7 Becky Lowry RN RN ap3 Anel Lomeli Itzel im
--- NOTE | 2024-02-04 09:57 | EDPHYS ---
Physician Documentation [facility] Name: Yanelis Gallagher Age: 28 yrs Sex: Female : 1995 Arrival Date: 02/04/2024 Time: 08:53 Bed 8 Private MD: ED Physician Erik Erwin HPI: 02/03 09:14 This 28 yrs old Female presents to ER via Ambulatory with complaints of Low rn Back Pain, Pain With Urination, Pelvic Pain. 09:25 The patient presents with urinary symptoms, dysuria. Onset: The symptoms/episode rn began/occurred 4 day(s) ago. Modifying factors: The symptoms are alleviated by nothing, the symptoms are aggravated by urinating. Associated signs and symptoms: Pertinent negatives: fever, vomiting. Severity of symptoms: At their worst the symptoms were mild, in the emergency department the symptoms are unchanged. The patient has not experienced similar symptoms in the past. The patient has not recently seen a physician. Patient reports diagnosed with UTI a few days ago. Patient reports still has dysuria. No fever or chills. No vomiting. No upper back pain. No significant abdominal pain. No history of kidney stones. Denies . Patient states that her symptoms have not worsened they just have not improved. 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 - Infectious Disease History:: Denies. - Social history:: Smoking status: Patient denies any tobacco usage or history of. - Family history:: not pertinent. - Hospitalizations: : No recent hospitalization is reported. ROS: 09:25 Constitutional: Negative for fever, chills, and weight loss, Cardiovascular: Negative rn for chest pain, palpitations, and edema, Respiratory: Negative for shortness of breath, cough, wheezing, and pleuritic chest pain, Abdomen/GI: Negative for abdominal pain, nausea, vomiting, diarrhea, and constipation, Back: Positive for low back pain : Positive for dysuria Exam: 09:25 Constitutional: This is a well developed, well nourished patient who is awake, alert, rn and in no acute distress. Cardiovascular: Regular rate and rhythm. No pulse deficits. Abdomen/GI: Soft, nontender Back: No CVA tenderness Vital Signs: 09:05 BP 134 / 82; Pulse 97; Resp 17; Pulse Ox 99% ; Weight 78.93 kg; Height 5 ft. 3 in. ; 7 09:05 Body Mass Index 30.82 (78.93 kg, 160.02 cm) 7 MDM: 08:58 Medical Screening Exam initiated rn 09:52 Differential diagnosis: urinary tract infection. Data reviewed: vital signs, nurses rn notes, lab test result(s), and as a result, I will discharge patient. Counseling: I had a detailed discussion with the patient and/or guardian regarding the historical points, exam findings, and any diagnostic results supporting the discharge/admit diagnosis, lab results, the need for outpatient follow up, to return to the emergency department if symptoms worsen or persist or if there are any questions or concerns that arise at home. Special discussion: I discussed with the patient/guardian in detail that at this point there is no indication for admission to the hospital. It is understood, however, that if the symptoms persist or worsen the patient needs to return immediately for re-evaluation. ED course: Reviewed urine culture from Thursday, shows ESBL with resistant to everything except for meropenem, gentamicin and Macrobid. Given patient does not have any systemic symptoms to indicate pyelonephritis or worsening symptoms we will try Macrobid and given strict return precautions. If patient fails Macrobid will have to be admitted for IV antibiotics as no other choice.. 02/03 08:58 Order name: Test, Urine rn 02/03 08:58 Order name: Urinalysis w/ reflexes rn 02/03 09:50 Order name: Urine Culture EDMS Administered Medications: 09:43 Drug: Macrobid PO 100 mg PO once; administer with food Route: PO; ap3 10:14 Follow up: Response: No adverse reaction ap3 Disposition Summary: 02/04/24 09:56 Discharge Ordered Notes: Location: Home rn Problem: an ongoing problem rn Symptoms: are unchanged rn Condition: Stable rn Diagnosis - UTI/ Urinary tract infection, site not specified rn Followup: rn - With: Private Physician - When: As needed - Reason: Recheck today's complaints, Re-evaluation by your physician Discharge Instructions: - Discharge Summary Sheet rn - Urinary Tract Infection, Adult rn Forms: - Medication Reconciliation Form rn - Antibiotic outpatient surgery rn - Prescription Opioid Use rn - Patient Portal Instructions rn - Leadership Thank You Letter rn Prescriptions: - Macrobid 100 mg Oral Capsule - take 1 capsule ORAL route every 12 hours for 10 days; 20 capsule; Refills: 0, rn Product Selection Permitted Signatures: Dispatcher [employer] [facility] Erik Erwin MD MD rn Leal, Jahala RN RN jl7 Becky Lowry RN RN ap3 Corrections: (The following items were deleted from the chart) 08:59 08:59 Test, Urine+UC.LAB.BRZ ordered. [facility] EDAK 08:59 08:59 Urinalysis+U.LAB.BRZ ordered. [facility] EDAK 09:27 09:25 Patient reports diagnosed with UTI a few days ago. Patient reports still has rn dysuria. No fever or chills. No vomiting. No upper back pain. No significant abdominal pain. No history of kidney stones. Denies .. rn
[2024-02-04 15:26] VITALS: BP 134/82; O2SAT 99
== END 2024-02-04 10:14 | disposition home or self-care (01) ==
LOC: ER 08:53
DX: N39.0 Urinary tract infection, site not specified (principal)
CPT/HCPCS: 81001; 81025; 87077; 87086; 87088; 87186; 99283